=== PATIENT | female | born 1940 | race Caucasian/White ===

== ENCOUNTER 2017-04-09 12:59 | Observation (INO) ==
[2017-04-09] MEDS ORDERED: Ipratropium/Albuterol Neb 3 ML IH ONE (13:12)
[2017-04-09] MEDS ORDERED: methylPREDNISolone 125 MG/2 ML VIAL IVP ONE (13:12)
[2017-04-09] MEDS ORDERED: Albuterol 2.5 MG/3 ML NEBULIZER IH ONE (13:12)
--- NOTE | 2017-04-09 13:16 | Emergency Department Note ---
Disposition Clinical Impression: COPD exacerbation Pneumonia Qualifiers: Pneumonia type: due to unspecified organism Laterality: left Lung location: lower lobe of lung Qualified Code(s): J18.1 - Lobar pneumonia, unspecified organism Disposition: Admitted As Inpatient Condition: Good Referrals: Fortunato Rincon MD [Primary Care Provider] - Forms: ED Satisfaction Letter Time of Disposition: 14:51 SOB HPI - General Chief Complaint: ED Shortness of Breath/Dyspnea Stated Complaint: ANA and cough for 3 days Time Seen by Provider: 04/09/17 13:10 Source: patient Mode of arrival: ambulatory Limitations: no limitations Nursing Notes Reviewed: Yes Vital Signs Reviewed: Yes - History of Present Illness 76-year-old female states she has been sick for 3 days with a cough and difficulty breathing. Her cough is productive yellow sputum. She did have a fever, she states her daughter documented it at 102 degrees orally yesterday. Some sharp discomfort over her right lower anterior chest with coughing and deep breathing. No abdominal pain. No back pain. She has a history of COPD. She is an ex smoker. Pt Subjective Complaint: shortness of breath, cough Onset (ago): day(s) (3) Context: recent illness Severity: moderate Consistency/Duration: intermittent Improves with: rest, bronchodilators Worsens with: lying flat, movement, coughing Known history of: COPD Associated symptoms: Reports: chest pain (Sharp right lower anterior chest discomfort with coughing and deep breathing), fever, cough, sputum production, other (Headache) Treatment prior to arrival: bronchodilator (Albuterol inhaler), other (Tylenol) Cough present: Yes Cough Description: Involuntary Cough Frequency: Intermittent Sputum production: Yes Sputum Amount: Moderate Sputum Color: Yellow - Related Data Home oxygen amount: none Home Medications Medication Instructions Recorded Confirmed Albuterol Sulfate [Albuterol 2 puff IH TID 07/31/16 04/09/17 Inhaler] Clopidogrel [Plavix] 75 mg PO DAILY 07/31/16 04/09/17 Levothyroxine Sodium [Levo-T] 125 mcg PO DAILY 07/31/16 04/09/17 Lisinopril [Zestril] 20 mg PO DAILY 07/31/16 04/09/17 Loratadine [Allergy Relief] 10 mg PO DAILY 07/31/16 04/09/17 Lovastatin 40 mg PO DAILY 07/31/16 04/09/17 Montelukast [Singulair] 10 mg PO DAILY 07/31/16 04/09/17 Oxybutynin [Ditropan] 5 mg PO DAILY 07/31/16 04/09/17 Pantoprazole Sodium [Protonix] 40 mg PO DAILY 07/31/16 04/09/17 Tiotropium [Spiriva] 18 mcg IH DAILY 07/31/16 04/09/17 Gabapentin [Neurontin] 300 mg PO TID 12/22/16 04/09/17 Budesonide/Formoterol 80/4.5 1 puff IH AD 04/09/17 04/09/17 [Symbicort 80/4.5] Fluticasone Propionate Nasal 1 spray NS DAILY 04/09/17 04/09/17 [Flonase] Allergies Allergy/AdvReac Type Severity Reaction Status Date / Time aspirin Allergy Hives Verified 07/31/16 12:15 codeine Allergy Swelling Verified 07/31/16 12:15 of Lip/Tongue/Throat Hydromorphone [From Dilaudid] Allergy Hives Verified 07/31/16 12:15 Penicillins Allergy Swelling Verified 07/31/16 12:15 of Lip/Tongue/Throat tetracaine Allergy Hives Verified 07/31/16 12:15 Varenicline [From Chantix] Allergy Hives Verified 07/31/16 12:15 Tetracycline AdvReac Gastrointestinal Verified 07/31/16 12:15 Upset All systems ED: reviewed and negative except as stated. Constitutional: Reports: fever, chills Eyes: Denies: eye discharge ENT ED: Reports: ear pain (Right), throat pain Cardiovascular: Reports: chest pain (Right lower anterior chest, sharp, associated with coughing and inspiration) Respiratory: Reports: cough, dyspnea, wheezes, sputum production Gastrointestinal: Denies: abdominal pain, nausea, vomiting, diarrhea Genitourinary: Denies: urgency, dysuria, frequency Musculoskeletal: Denies: back pain Integumentary: Denies: rash Past Medical History - Past Medical History Medical history: Reports: arthritis, COPD, CVA, diabetes, hypertension, TIA Surgical history: Reports: appendectomy, cataract, cholecystectomy, hysterectomy , orthopedic, other Psychiatric history: Reports: no psych history 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 Absent: scleral icterus, conjunctival injection - ENT ENT exam: mucous membranes moist, TM's normal bilaterally, other (Mild diffuse erythema posterior pharynx.) - Neck Neck exam: Present: normal inspection, full ROM, trachea midline. Absent: tenderness, meningismus, lymphadenopathy - Chest Chest inspection: Present: normal inspection, symmetric chest wall rise - Respiratory Respiratory exam: Present: respiratory distress (Mildly dyspneic), wheezes ( Moderate bilateral expiratory), prolonged expiratory phase. Absent: accessory muscle use - Cardiovascular Cardiovascular exam: Present: normal rhythm, tachycardia (106). Absent: systolic murmur, diastolic murmur - Abdominal Exam Abdominal exam: Present: soft, Non-Tender, normal bowel sounds, other (Obese). Absent: distention - Extremities Exam Extremities exam: Present: normal inspection, full ROM, normal capillary refill. Absent: pedal edema, calf tenderness - Neurological Exam Neurological exam: Present: alert, oriented X3, normal gait - Psychiatric Psychiatric exam: Present: normal affect, normal mood - Skin Skin exam: Present: warm, dry, intact. Absent: cyanosis, diaphoresis Course - Reevaluation(s) Reevaluation #1: Reexam shows improved air movement. Mild expiratory wheezing remaining. The patient states she feels somewhat better. Results of her laboratory, EKG and chest x-ray were discussed. Treatment plan was discussed. She is agreeable. Time: 14:49 Reevaluation #2: Discussed with Dr. Chery. He accepts the patient for admission. Time: 14:56 Vital Signs Temperature 98.4 F 04/09/17 13:00 Pulse Rate 97 04/09/17 13:00 Respiratory Rate 28 04/09/17 13:00 Blood Pressure 122/69 04/09/17 13:00 O2 Sat by Pulse Oximetry 94 04/09/17 13:00 Temperature 98.4 F 04/09/17 13:01 Pulse Rate 97 04/09/17 13:01 Respiratory Rate 19 04/09/17 13:41 Blood Pressure 122/69 04/09/17 13:01 O2 Sat by Pulse Oximetry 95 04/09/17 13:41 Oxygen Delivery Oxygen Delivery Room Air Shortness of Breath/Dyspnea - [facility] Narrative Medical decision making narrative: Clinically she has a COPD exacerbation. Based on her history of fever, productive cough, and her x-ray findings she has pneumonia. The radiologist noted a suspected infiltrate noted on the lateral view. On my review I believe it is likely a left lower lobe infiltrate. IV antibiotics will be initiated. She has been given hand-held nebulizers 3 and IV Solu-Medrol. I will talk with Dr. Chery about hospitalization and admission for further treatment. The patient is agreeable with this treatment plan. - Differential Diagnosis Likely: acute exacerbation of chronic obstructive airways disease, congestive heart failure, pneumonia, pulmonary embolism, pneumothorax, arrhythmia - Lab Data Lab results reviewed: Yes I reviewed the patient's lab results. Result diagrams: 04/09/17 13:20 04/09/17 13:20 Lab Results 04/09/17 04/09/17 04/09/17 Range/Units 13:20 13:20 13:20 WBC 11.5 H (4.3-11.1) K/mcL RBC 4.57 (3.82-4.97) M/mcL Hgb 13.8 (11.5-15.4) g/dL Hct 39.8 (35.3-44.9) % MCV 87.1 (83.0-100.0) fL MCH 30.2 (28.0-33.3) pg MCHC 34.7 (31.6-35.5) g/dL RDW 13.2 (11.5-14.5) % Plt Count 223 (140-400) K/mcL MPV 9.3 L (9.4-12.4) fL Immature Gran % 0.6 (0-4) % Seg Neutrophils % 76.3 % Lymphocytes % 13.0 % Monocytes % 9.3 % Eosinophils % 0.5 % Basophils % 0.3 % Neutrophils # 8.8 (1.6-8.9) K/mcL Lymphocytes # 1.5 (0.6-4.6) K/mcL Monocytes # 1.1 (0.0-1.3) K/mcL Eosinophils # 0.1 (0.0-0.6) K/mcL Basophils # 0.0 (0.0-0.2) K/mcL VBG Lactic Acid (0.5-2.2) mmol/L Sodium 136 (136-145) mEq/L Potassium 3.9 (3.5-4.5) mEq/L Chloride 102 (98-109) mEq/L Carbon Dioxide 22 (19-29) mEq/L BUN 10 (7-20) mg/dL Creatinine 0.77 (0.57-1.11) mg/dL Est GFR ( Amer) > 60 (> 60) Est GFR (Non-Af Amer) > 60 (> 60) BUN/Creatinine Ratio 13 (6-26) Glucose 131 H (70-99) mg/dL Calculated Osmolality 283 (280-300) Calcium 9.9 (8.6-10.8) mg/dL Total Bilirubin 1.2 (0.2-1.2) mg/dL AST 16 (5-34) Units/L ALT 17 (0-55) Units/L Alkaline Phosphatase 48 (38-126) Units/L Troponin I 0.01 (0-0.03) ng/mL B-Natriuretic Peptide (0-100) pg/mL Serum Total Protein 7.1 (6.0-8.3) g/dL Albumin 3.5 (3.5-5.0) g/dL Globulin 3.6 H (2.4-3.5) g/dL Albumin/Globulin Ratio 1.0 L (1.1-2.2) 04/09/17 04/09/17 Range/Units 13:20 13:20 WBC (4.3-11.1) K/mcL RBC (3.82-4.97) M/mcL Hgb (11.5-15.4) g/dL Hct (35.3-44.9) % MCV (83.0-100.0) fL MCH (28.0-33.3) pg MCHC (31.6-35.5) g/dL RDW (11.5-14.5) % Plt Count (140-400) K/mcL MPV (9.4-12.4) fL Immature Gran % (0-4) % Seg Neutrophils % % Lymphocytes % % Monocytes % % Eosinophils % % Basophils % % Neutrophils # (1.6-8.9) K/mcL Lymphocytes # (0.6-4.6) K/mcL Monocytes # (0.0-1.3) K/mcL Eosinophils # (0.0-0.6) K/mcL Basophils # (0.0-0.2) K/mcL VBG Lactic Acid 1.2 (0.5-2.2) mmol/L Sodium (136-145) mEq/L Potassium (3.5-4.5) mEq/L Chloride (98-109) mEq/L Carbon Dioxide (19-29) mEq/L BUN (7-20) mg/dL Creatinine (0.57-1.11) mg/dL Est GFR ( Amer) (> 60) Est GFR (Non-Af Amer) (> 60) BUN/Creatinine Ratio (6-26) Glucose (70-99) mg/dL Calculated Osmolality (280-300) Calcium (8.6-10.8) mg/dL Total Bilirubin (0.2-1.2) mg/dL AST (5-34) Units/L ALT (0-55) Units/L Alkaline Phosphatase (38-126) Units/L Troponin I (0-0.03) ng/mL B-Natriuretic Peptide 28 (0-100) pg/mL Serum Total Protein (6.0-8.3) g/dL Albumin (3.5-5.0) g/dL Globulin (2.4-3.5) g/dL Albumin/Globulin Ratio (1.1-2.2) - Radiology Data Radiology results reviewed: Yes I reviewed the patient's radiology results. ITS Impressions Chest X-Ray 04/09/17 13:12 IMPRESSION: COPD, with vague focal opacity best seen on the lateral view which could represent an area of pneumonia. Follow-up radiographs are recommended to document resolution. D/ / Kameron Mendenhall MD / Kameron Mendenhall MD Interpreting Provider: Kameron Mendenhall MD - EKG Data EKG attestation: Yes I reviewed and interpreted this EKG. EKG results narrative: Normal sinus rhythm, rate of 99, no acute changes. Rhythm strip shows sinus rhythm with a rate of 99, ND interval 140 ms, QRS of 82 ms with no other ectopy as interpreted by me.
[2017-04-09 13:33] LABS: Basophils % 0.3 %; Eosinophils # 0.1 K/mcL (0.0-0.6); Eosinophils % 0.5 %; Hematocrit 39.8 % (35.3-44.9); Hemoglobin 13.8 g/dL (11.5-15.4); Immature Granulocytes % 0.6 % (0-4); Lymphocytes # 1.5 K/mcL (0.6-4.6); Mean Corpuscular HGB Conc 34.7 g/dL (31.6-35.5); Mean Corpuscular Hemoglobin 30.2 pg (28.0-33.3); Mean Corpuscular Volume 87.1 fL (83.0-100.0); Mean Platelet Volume 9.3 fL (9.4-12.4); Monocytes # 1.1 K/mcL (0.0-1.3); Monocytes % 9.3 %; Neutrophils # 8.8 K/mcL (1.6-8.9); Platelet Count 223 K/mcL (140-400); Red Blood Count 4.57 M/mcL (3.82-4.97); Red Cell Distribution Width 13.2 % (11.5-14.5); Segmented Neutrophils % 76.3 %
[2017-04-09 13:53] LABS: Alanine Aminotransferase 17 Units/L (0-55); Albumin 3.5 g/dL (3.5-5.0); Alkaline Phosphatase 48 Units/L (38-126); Aspartate Amino Transferase 16 Units/L (5-34); BUN/Creatinine Ratio 13 (6-26); Bilirubin,Total 1.2 mg/dL (0.2-1.2); Blood Urea Nitrogen 10 mg/dL (7-20); Calcium 9.9 mg/dL (8.6-10.8); Carbon Dioxide 22 mEq/L (19-29); Chloride 102 mEq/L (98-109); Globulin 3.6 g/dL (2.4-3.5); Glucose 131 mg/dL (70-99); Osmolality,Calculated 283 (280-300); Potassium 3.9 mEq/L (3.5-4.5); Sodium 136 mEq/L (136-145); Total Protein 7.1 g/dL (6.0-8.3); eGFR For African Americans > 60 (> 60); eGFR For Non-African Americans > 60 (> 60)
[2017-04-09] MEDS ORDERED: Azithromycin 500 MG in D5% in Water 250 ML IVPB ONE (14:47)
[2017-04-09] MEDS ORDERED: Ondansetron 4 MG/2 ML VIAL IVP ONE (16:01)
[2017-04-09] MEDS ORDERED: Naloxone 0.4 MG/ML INJ IVP PRN (16:18)
[2017-04-09] MEDS ORDERED: Ondansetron ODT 4 MG TAB.RAPDIS SL PRN (16:18)
[2017-04-09] MEDS: Gabapentin 300 MG CAPSULE PO SCH ×2 (17:12→20:36)
[2017-04-09] MEDS: Acetaminophen 325 MG TABLET PO PRN (19:35)
[2017-04-09] MEDS: MethylPREDNISolone 40 MG/ML VIAL IVP SCH (20:36)
[2017-04-09] MEDS: Ipratropium/Albuterol Neb 3 ML IH SCH (21:03)
[2017-04-10] MEDS: Ipratropium/Albuterol Neb 3 ML IH SCH ×3 (00:03→08:23)
[2017-04-10] MEDS: Acetaminophen 325 MG TABLET PO PRN (03:43)
[2017-04-10] MEDS ORDERED: *HR* Enoxaparin 40 MG/0.4 ML SYRINGE SQ SCH (06:00)
[2017-04-10] MEDS: MethylPREDNISolone 40 MG/ML VIAL IVP SCH (06:19)
[2017-04-10] MEDS: Gabapentin 300 MG CAPSULE PO SCH (08:02)
[2017-04-10] MEDS ORDERED: Loratadine 10 MG TABLET PO SCH (09:00)
[2017-04-10] MEDS ORDERED: Lisinopril 20 MG TABLET PO SCH (09:00)
[2017-04-10] MEDS ORDERED: Fluticasone Propionate Nasal 50 MCG/SPRAY BOTTLE NS SCH (09:00)
--- NOTE | 2017-04-10 09:55 | Internal Med History&Physical ---
Date of Encounter: 04/10/17 Time of Encounter: 09:25 Assessment and Plan (1) COPD exacerbation Current visit: Yes Status: Acute She was given Rocephin, Zithromax, and Solu-Medrol in emergency room. She states she feels improved now and stable for discharge home. (2) Pneumonia Current visit: Yes Status: Acute Equivocal evidence. She was given antibiotics and steroids as per above. Qualifiers: Pneumonia type: due to unspecified organism Laterality: left Lung location: lower lobe of lung Qualified Code(s): J18.1 - Lobar pneumonia, unspecified organism (3) Hypertension Current visit: Yes Status: Chronic Continue lisinopril Qualifiers: Hypertension type: essential hypertension Qualified Code(s): I10 - Essential (primary) hypertension Internal Medicine - H&P: HPI Chief complaint: Cough and fever Admitted From: Home Plans for Post Hospital Care: Home History of present illness: Ms. Acosta is a 76 year old female who came to emergency room stating she had onset of sore throat, earache, cough, and fever on April 04. The cough was essentially nonproductive. She had nausea but no vomiting. She had slight loose stools. When she did not improve she came to emergency room and was evaluated. She was felt to have possible pneumonia and was admitted to [facility] floor for ongoing care needs. She states her breathing is slightly improved at the present time. Her respiratory history is significant for having smoked since age 19 a total of 55 years up to 2-1/2 packs per day. She states she quit smoking approximately 2 months ago. 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 She does not wear home oxygen. Her most recent chest CT was June 2015 which showed no acute findings. She has noncalcified pulmonary nodules stable since May 2011. Past Med Surg Social Fam HX - Past Medical History Medical history: arthritis, COPD, CVA, diabetes, hypertension, TIA Psychiatric history: no psych history - Past Surgical History Surgical History: appendectomy, cataract, cholecystectomy, hysterectomy, orthopedic, other - Social History Smoking Status: Former smoker Smokeless Tobacco Status: No Alcohol use: none Drug use: none Internal Medicine - H&P: Meds Albuterol Sulfate [Albuterol Inhaler] 2 puff IH TID 07/31/16 [History] Clopidogrel [Plavix] 75 mg PO DAILY 07/31/16 [History] Levothyroxine Sodium [Levo-T] 125 mcg PO DAILY 07/31/16 [History] Lisinopril [Zestril] 20 mg PO DAILY 07/31/16 [History] Loratadine [Allergy Relief] 10 mg PO DAILY 07/31/16 [History] Lovastatin 40 mg PO DAILY 07/31/16 [History] Montelukast [Singulair] 10 mg PO DAILY 07/31/16 [History] Oxybutynin [Ditropan] 5 mg PO DAILY 07/31/16 [History] Pantoprazole Sodium [Protonix] 40 mg PO DAILY 07/31/16 [History] Tiotropium [Spiriva] 18 mcg IH DAILY 07/31/16 [History] Gabapentin [Neurontin] 300 mg PO TID 12/22/16 [History] Budesonide/Formoterol 80/4.5 [Symbicort 80/4.5] 1 puff IH AD 04/09/17 [History] Fluticasone Propionate Nasal [Flonase] 1 spray NS DAILY 04/09/17 [History] Allergies aspirin Allergy (Verified 07/31/16 12:15) Hives codeine Allergy (Verified 07/31/16 12:15) Swelling of Lip/Tongue/Throat Hydromorphone [From Dilaudid] Allergy (Verified 07/31/16 12:15) Hives Penicillins Allergy (Verified 07/31/16 12:15) Swelling of Lip/Tongue/Throat tetracaine Allergy (Verified 07/31/16 12:15) Hives Varenicline [From Chantix] Allergy (Verified 07/31/16 12:15) Hives Tetracycline Adverse Reaction (Verified 07/31/16 12:15) Gastrointestinal Upset All Systems PM: A 10-system review of systems was performed and is negative for pertinent findings except as documented above in the HPI. Review of systems: Gen.: She states her weight is increased approximately 20 pounds in the past year, unintentionally Cardiovascular: She has history of hypertension. She has an aortic aneurysm and states she underwent a corrective procedure approximately 2009 at [facility]. She had what sounds to be ablation procedure for SVT several years ago. She denies MA DVT or pulmonary embolus. Respiratory: As per history of present illness GI: She is had cholecystectomy but denies disorders of her liver or exocrine pancreas : She denies hematuria dysuria or kidney stones Neurologic: She claims she has had 4 CVAs with the last one 2011. She has residual left leg weakness. She claims she has worsening tremor Endocrine: She has hypothyroidism and hyperlipidemia. She states she was diagnosed with DM 2 approximately 4 years ago but it is diet-controlled Hematology/oncology: She denies blood disorders cancers or anemia Psychiatric: She has anxiety depression denies other mental health issues Musk skeletal: She has DJD but denies gout or other bone joint or muscle disorders. - Constitutional Vitals: Temp Pulse Resp BP Pulse Ox 97.5 F L 88 18 116/66 97 04/10/17 06:30 04/10/17 06:30 04/10/17 08:23 04/10/17 06:30 04/10/17 08:23 Exam: Gen.: She is a well-developed well-nourished female who appears in no severe distress at present time HEENT: Head is atraumatic and normocephalic. Eyes: EOMI. There is no scleral icterus. Mouth: Mucosa is moist. Neck: Supple and nontender. There is no thyromegaly or adenopathy noted. Heart: Regular without murmurs gallops or ectopics. Lungs: No wheezes or crackles are heard. Abdomen: Soft and nontender. No masses or guarding noted. Exam is limited because she is in the seated position. Extremities: There is no cyanosis edema or clubbing noted. Dorsalis pedis and posterior tibial pulses are trace palpable bilaterally. 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 Neurologic: Mental status: She is talkative and a good historian. Cranial nerves: Smile is symmetric. Forehead wrinkles bilaterally. Tongue protrudes midline. EOMI. Motor: There is no pronator drift. Cerebellar: Finger to nose is intact bilaterally. Skin: Warm and dry Internal Med - H&P Results - Labs CBC & Chem 7: 04/09/17 13:20 04/09/17 13:20
--- NOTE | 2017-04-10 10:11 | Discharge Summary ---
Date of Encounter: 04/10/17 Time of Encounter: 09:25 - Discharge Diagnosis (1) COPD exacerbation Priority: Primary Status: Acute (2) Pneumonia Priority: Secondary Status: Acute Qualifiers: Pneumonia type: due to unspecified organism Laterality: left Lung location: lower lobe of lung Qualified Code(s): J18.1 - Lobar pneumonia, unspecified organism (3) Hypertension Priority: Secondary Status: Chronic Qualifiers: Hypertension type: essential hypertension Qualified Code(s): I10 - Essential (primary) hypertension - Discharge Medications Prescriptions: Lactobacillus [Culturelle] 1 each PO BID #6 cap.sprink Levofloxacin [Levaquin] 500 mg PO DAILY #3 tablet predniSONE [PredniSONE] 10 mg PO BIDWM #6 tablet Home Medications: Albuterol Sulfate [Albuterol Inhaler] 2 puff IH TID 07/31/16 [History] Clopidogrel [Plavix] 75 mg PO DAILY 07/31/16 [History] Levothyroxine Sodium [Levo-T] 125 mcg PO DAILY 07/31/16 [History] Lisinopril [Zestril] 20 mg PO DAILY 07/31/16 [History] Loratadine [Allergy Relief] 10 mg PO DAILY 07/31/16 [History] Lovastatin 40 mg PO DAILY 07/31/16 [History] Montelukast [Singulair] 10 mg PO DAILY 07/31/16 [History] Oxybutynin [Ditropan] 5 mg PO DAILY 07/31/16 [History] Pantoprazole Sodium [Protonix] 40 mg PO DAILY 07/31/16 [History] Tiotropium [Spiriva] 18 mcg IH DAILY 07/31/16 [History] Gabapentin [Neurontin] 300 mg PO TID 12/22/16 [History] Budesonide/Formoterol 80/4.5 [Symbicort 80/4.5] 1 puff IH AD 04/09/17 [History] Fluticasone Propionate Nasal [Flonase] 1 spray NS DAILY 04/09/17 [History] Lactobacillus [Culturelle] 1 each PO BID #6 cap.sprink 04/10/17 [Rx] Levofloxacin [Levaquin] 500 mg PO DAILY #3 tablet 04/10/17 [Rx] predniSONE [PredniSONE] 10 mg PO BIDWM #6 tablet 04/10/17 [Rx] Allergies/Adverse Reactions: Allergies aspirin Allergy (Verified 07/31/16 12:15) Hives codeine Allergy (Verified 07/31/16 12:15) Swelling of Lip/Tongue/Throat Hydromorphone [From Dilaudid] Allergy (Verified 07/31/16 12:15) Hives Penicillins Allergy (Verified 07/31/16 12:15) Swelling of Lip/Tongue/Throat tetracaine Allergy (Verified 07/31/16 12:15) Hives Varenicline [From Chantix] Allergy (Verified 07/31/16 12:15) Hives Tetracycline Adverse Reaction (Verified 07/31/16 12:15) Gastrointestinal Upset Date of admission: 04/09/17 16:14 Primary care physician: Fortunato Rincon MD - Patient Status Disposition: Home, Self-Care Condition: Good Functional capacity at discharge: uses cane/walker Overall status at discharge: patient is progressing back to baseline - Discharge Instructions Follow Up With: Fortunato Rincon MD [Primary Care Provider] - 1 week - Diet and Activity Activity: resume usual activities as tolerated Diet: advance to your usual diet Hospital course: Ms. Acosta is a 76 year old female who came to emergency room stating she had onset of sore throat, earache, cough, and fever on April 04. The cough was essentially nonproductive. She had nausea but no vomiting. She had slight loose stools. When she did not improve she came to emergency room and was evaluated. She was felt to have possible pneumonia and was admitted to [facility] floor for ongoing care needs. Initial orders were written by the emergency room physician. I saw her on April 10 and performed a history physical and discharge. She received Rocephin, Zithromax, and Solu-Medrol through emergency room. By the time I saw her she stated her breathing was significantly improved. She felt stable for discharge home which I felt was reasonable. She will continue with antibiotic,probiotic, and prednisone for 3 additional days at discharge. Room air oximetry will be checked on 6 minute walk prior to discharge. She will follow with her PCP within one week. - Time Spent with Patient Total time spent providing and/or coordinating discharge services: - Constitutional Vitals: Temp Pulse Resp BP Pulse Ox 97.5 F L 88 18 116/66 97 04/10/17 06:30 04/10/17 06:30 04/10/17 08:23 04/10/17 06:30 04/10/17 08:23
[2017-04-10 11:06] VITALS: BP 90/54
--- NOTE | 2017-04-10 11:54 | Electrocardiograph Report ---
[address] [place], [place] [address] Test Date: 2017-04-09 Pat Name: Gavi Acosta Department: [id number] Room: [facility] Gender: F [employer] Clerk: Gautam : 1940 Requested By: Branden Vergara Order Number: [id number] Reading MD: Ector Ambrose MD Measurements Intervals [place] Rate: 99 P: 4 MI: 140 QRS: -19 QRSD: 82 T: -14 QT: 319 QTc: 375 Interpretive Statements SINUS RHYTHM Electronically Signed On 04-10-2017 11:53:04 EDT by Ector Ambrose MD
[2017-04-10] MEDS ORDERED: Azithromycin 500 MG in D5% in Water 250 ML IVPB SCH (16:00)
== END 2017-04-10 12:34 | disposition home or self-care (01) ==
LOC: INPPIK 12:59 → EMEROOPIK 12:59 → INPPIK 16:36
PROVIDERS: ADMIT Internal Medicine; ATTEND Internal Medicine

== ENCOUNTER 2019-09-20 16:44 | Observation (INO) ==
[2019-09-20] MEDS ORDERED: Pantoprazole 40 MG VIAL IVP ONE (16:54)
[2019-09-20] MEDS ORDERED: Ondansetron 4 MG/2 ML VIAL IVP ONE (16:54)
[2019-09-20] MEDS ORDERED: 0.9 % Sodium Chloride 1,000 ML IVC ONE (16:54)
[2019-09-20 17:16] LABS: Basophils % 0.3 %; Eosinophils % 0.1 %; Hematocrit 40.8 % (35.3-44.9); Immature Granulocytes % 0.3 % (0-4); Lymphocytes # 0.6 K/mcL (0.6-4.6); Lymphocytes % 9.1 %; Mean Corpuscular HGB Conc 34.3 g/dL (31.6-35.5); Mean Corpuscular Hemoglobin 31.5 pg (28.0-33.3); Mean Corpuscular Volume 91.7 fL (83.0-100.0); Mean Platelet Volume 8.9 fL (9.4-12.4); Monocytes # 0.5 K/mcL (0.0-1.3); Monocytes % 7.3 %; Neutrophils # 5.8 K/mcL (1.6-8.9); Platelet Count 148 K/mcL (140-400); Red Blood Count 4.45 M/mcL (3.82-4.97); Red Cell Distribution Width 13.2 % (11.5-14.5); Segmented Neutrophils % 82.9 %
[2019-09-20 17:23] LABS: INR 1.2; Prothrombin Time 13.3 Seconds (9.4-12.1)
[2019-09-20 17:36] LABS: Alanine Aminotransferase 6 Units/L (7-52); Albumin 3.9 g/dL (3.5-5.7); Albumin/Globulin Ratio 1.7 (1.1-2.2); Alkaline Phosphatase 45 Units/L (34-104); Amylase 24 Units/L (29-103); Aspartate Amino Transferase 10 Units/L (13-39); BUN/Creatinine Ratio 10 (6-26); Bilirubin,Direct 0.1 mg/dL (0.0-0.2); Bilirubin,Indirect 0.7 mg/dL (0.0-1.0); Bilirubin,Total 0.8 mg/dL (0.3-1.0); Blood Urea Nitrogen 7 mg/dL (8-23); Carbon Dioxide 28 mEq/L (23-29); Chloride 100 mEq/L (98-107); Globulin 2.3 g/dL (2.4-3.5); Glucose 99 mg/dL (70-105); Lipase 21 Units/L (11-82); Osmolality,Calculated 280 (280-300); Potassium 3.6 mEq/L (3.5-5.1); Sodium 136 mEq/L (136-145); Total Protein 6.2 g/dL (6.4-8.9); eGFR For African Americans > 60 (> 60); eGFR For Non-African Americans > 60 (> 60)
[2019-09-20] MEDS ORDERED: MetroNIDAZOLE 500 MG/100 ML 500 MG/100 ML BAG IVPB ONE ×2 (17:46→18:26)
[2019-09-20] MEDS ORDERED: Naloxone 0.4 MG/ML INJ IVP PRN (18:26)
[2019-09-20] MEDS ORDERED: Albuterol 2.5 MG/3 ML NEBULIZER IH PRN (18:26)
[2019-09-20] MEDS ORDERED: Ondansetron 4 MG/2 ML VIAL IVP PRN (18:26)
[2019-09-20 19:35] LABS: Bilirubin,Urine Negative (Negative); Blood,Urine Moderate (Negative); Clarity,Urine Slightly Cloudy (Clear); Color,Urine Yellow (Yellow); Glucose,Urine (UA) Normal (Normal); Ketones,Urine 40 mg/dL (Negative); Leukocyte Esterase,Urine Moderate (Negative); Nitrite,Urine Negative (Negative); Protein,Urine Negative (Neg-Trace); Specific Gravity,Urine 1.015 (1.010-1.025); Urobilinogen,Urine Normal (Normal)
[2019-09-20 19:45] LABS: Squamous Epithelial Cell,Urine Many per lpf (None-Few)
[2019-09-20 19:46] LABS: Bacteria,Urine Moderate per hpf (None-Few); Mucus,Urine Moderate (Few)
[2019-09-20] MEDS: 0.9 % Sodium Chloride 1,000 ML IVC SCH (20:38)
[2019-09-20] MEDS: Acetaminophen 325 MG TABLET PO PRN (21:59)
[2019-09-20] MEDS: Ipratropium/Albuterol Neb 3 ML IH SCH (22:53)
[2019-09-21] MEDS ORDERED: MetroNIDAZOLE 500 MG/100 ML 500 MG/100 ML BAG IVPB SCH (02:00)
[2019-09-21] MEDS: 0.9 % Sodium Chloride 1,000 ML IVC SCH (03:54)
[2019-09-21] MEDS: MetroNIDAZOLE 500 MG/100 ML 500 MG/100 ML BAG IVPB SCH ×3 (03:54→20:45)
[2019-09-21] MEDS: Ipratropium/Albuterol Neb 3 ML IH SCH ×4 (04:36→21:58)
[2019-09-21] MEDS: Acetaminophen 325 MG TABLET PO PRN ×3 (04:58→20:45)
[2019-09-21 15:50] LABS: BUN/Creatinine Ratio 8 (6-26); Blood Urea Nitrogen 5 mg/dL (8-23); Calcium 7.9 mg/dL (8.6-10.3); Carbon Dioxide 27 mEq/L (23-29); Chloride 108 mEq/L (98-107); Glucose 106 mg/dL (70-105); Osmolality,Calculated 288 (280-300); Potassium 3.4 mEq/L (3.5-5.1); Sodium 140 mEq/L (136-145); eGFR For African Americans > 60 (> 60); eGFR For Non-African Americans > 60 (> 60)
[2019-09-22] MEDS: MetroNIDAZOLE 500 MG/100 ML 500 MG/100 ML BAG IVPB SCH ×3 (04:17→20:08)
[2019-09-22] MEDS: Ipratropium/Albuterol Neb 3 ML IH SCH ×4 (04:26→22:24)
[2019-09-22] MEDS: Acetaminophen 325 MG TABLET PO PRN (06:32)
[2019-09-22 06:52] LABS: Basophils % 0.3 %; Eosinophils % 1.2 %; Hematocrit 32.9 % (35.3-44.9); Hemoglobin 11.2 g/dL (11.5-15.4); Immature Granulocytes % 0.3 % (0-4); Lymphocytes # 0.6 K/mcL (0.6-4.6); Lymphocytes % 17.6 %; Mean Corpuscular Hemoglobin 30.9 pg (28.0-33.3); Mean Corpuscular Volume 90.6 fL (83.0-100.0); Mean Platelet Volume 9.8 fL (9.4-12.4); Monocytes # 0.3 K/mcL (0.0-1.3); Neutrophils # 2.4 K/mcL (1.6-8.9); Platelet Count 124 K/mcL (140-400); Red Blood Count 3.63 M/mcL (3.82-4.97); Red Cell Distribution Width 13.1 % (11.5-14.5); Segmented Neutrophils % 70.6 %; White Blood Count 3.4 K/mcL (4.3-11.1)
[2019-09-23] MEDS: Ipratropium/Albuterol Neb 3 ML IH SCH ×2 (03:23→10:26)
[2019-09-23] MEDS: MetroNIDAZOLE 500 MG/100 ML 500 MG/100 ML BAG IVPB SCH (04:02)
[2019-09-23] MEDS: Acetaminophen 325 MG TABLET PO PRN (04:04)
[2019-09-23 07:51] LABS: Basophils % 0.8 %; Eosinophils # 0.1 K/mcL (0.0-0.6); Eosinophils % 1.9 %; Hematocrit 34.9 % (35.3-44.9); Hemoglobin 12.1 g/dL (11.5-15.4); Immature Granulocytes % 0.3 % (0-4); Lymphocytes % 27.5 %; Mean Corpuscular HGB Conc 34.7 g/dL (31.6-35.5); Mean Corpuscular Hemoglobin 31.2 pg (28.0-33.3); Mean Corpuscular Volume 89.9 fL (83.0-100.0); Mean Platelet Volume 9.2 fL (9.4-12.4); Monocytes # 0.4 K/mcL (0.0-1.3); Monocytes % 11.6 %; Neutrophils # 2.1 K/mcL (1.6-8.9); Platelet Count 148 K/mcL (140-400); Red Blood Count 3.88 M/mcL (3.82-4.97); Segmented Neutrophils % 57.9 %; White Blood Count 3.6 K/mcL (4.3-11.1)
[2019-09-23 07:52] VITALS: BP 113/64
[2019-09-23 08:14] LABS: Alanine Aminotransferase 7 Units/L (7-52); Albumin 3.2 g/dL (3.5-5.7); Albumin/Globulin Ratio 1.6 (1.1-2.2); Alkaline Phosphatase 35 Units/L (34-104); Aspartate Amino Transferase 11 Units/L (13-39); BUN/Creatinine Ratio 5 (6-26); Bilirubin,Total 0.4 mg/dL (0.3-1.0); Blood Urea Nitrogen 3 mg/dL (8-23); Calcium 8.4 mg/dL (8.6-10.3); Carbon Dioxide 28 mEq/L (23-29); Chloride 105 mEq/L (98-107); Glucose 93 mg/dL (70-105); Magnesium 1.6 mg/dL (1.6-2.6); Osmolality,Calculated 286 (280-300); Potassium 3.2 mEq/L (3.5-5.1); Sodium 140 mEq/L (136-145); Total Protein 5.2 g/dL (6.4-8.9); eGFR For African Americans > 60 (> 60); eGFR For Non-African Americans > 60 (> 60)
== END 2019-09-23 12:25 | disposition home health service (06) ==
LOC: EMEROOPIK 16:44 → INPPIK 16:44
PROVIDERS: ADMIT Family Medicine; ATTEND Family Medicine